=== PATIENT | female | born 1990 | race American Indian/Alaskan Native ===

== ENCOUNTER 2018-03-14 15:38 | Emergency (ER) | payer MEDICAID, OTHER ==
[2018-03-14 16:48] VITALS: BP 106/70
[2018-03-14 18:28] LABS: Bilirubin,Urine NEG (Negative); Blood,Urine LG (Negative); Mucus,Urine 1+ /HPF; Urobilinogen,Urine < 2.0 mg/dL (<2.0)
[2018-03-14 18:45] LABS: Color,Urine Yellow (Yellow); HCG Qualitative,Urine Negative (Negative)
== END 2018-03-14 23:40 | disposition left against medical advice (07) ==
LOC: ED 15:38
DX: Z53.21 Procedure and treatment not carried out due to patient leaving prior to being seen by health care provider (principal)
CPT/HCPCS: 81001; 81025

== ENCOUNTER 2020-06-06 14:18 | Emergency (ER) | payer OTHER ==
[2020-06-06] MEDS ORDERED: ACETAMINOPHEN 325 MG TAB PO ONE (14:44)
--- NOTE | 2020-06-06 14:51 | Emergency Department Report ---
HPI - General Chief Complaint: Headache Time Seen by Provider: 06/06/20 14:33 - HPI HPI: This is a 30-year-old female who presents to the emergency department with a complaint of lower extremity swelling, right-sided headache and some facial swelling around her cheeks since yesterday. The patient took some Tylenol without much relief. She says that she gets some transient relief in her headache from laying down. She denies any vision change, slurred speech, numbness or paresthesias or any neurological deficits. She denies any chest pain, shortness of breath, fever. The patient gave via vaginal delivery on 06/01/2020 at [facility]. Her [employer] is a Dr. Lei. Otherwise no past medical history. ED Past Medical Hx - Past Medical History Previous Medical History?: Yes Hx Psychiatric Treatment: Yes Additional medical history: Psychiatric diagnoses see HPI, MISCARRIAGE 2016 - Surgical History Past Surgical History?: No - Social History Smoking Status: Never Smoker Substance Use Type: None - Medications Home Medications: Home Medications Medication Instructions Recorded Confirmed Last Taken Type LORazepam [Ativan] 0.5 mg PO Q6H PRN #7 tablet 06/16/14 Unknown Rx traZODone [Desyrel] 50 mg PO QHS #30 tab 06/16/14 Unknown Rx HYDROcodone/APAP 5-325 [[place] 1 - 2 each PO Q6HR PRN #14 tablet 06/29/16 Unknown Rx 5/325] Ibuprofen [Motrin 800 MG tab] 800 mg PO Q8HR PRN #20 tablet 06/29/16 Unknown Rx Methylergonovine [Methergine] 0.2 mg PO Q6H #4 tablet 06/29/16 Unknown Rx ED Review of Systems ROS: Stated complaint: ALL OVER BODY SWELLING Other details as noted in HPI Comment: All other systems reviewed and negative Constitutional: denies: chills, fever Eyes: denies: eye pain, vision change ENT: denies: ear pain, throat pain Respiratory: denies: cough, shortness of breath Cardiovascular: edema. denies: chest pain Gastrointestinal: denies: abdominal pain, vomiting Genitourinary: denies: dysuria, discharge Musculoskeletal: denies: back pain, arthralgia Skin: denies: rash, lesions Neurological: headache. denies: weakness, numbness, paresthesias Physical Exam - Physical Exam Vital Signs: Vital Signs 06/06/20 14:19 Temperature 99.3 F Pulse Rate 80 Respiratory 18 Rate Blood Pressure 134/79 O2 Sat by Pulse 98 Oximetry ED Course Vital Signs 06/06/20 14:19 Temperature 99.3 F Pulse Rate 80 Respiratory 18 Rate Blood Pressure 134/79 O2 Sat by Pulse 98 Oximetry - Reevaluation(s) Reevaluation #1: 06/06/20 18:02 Patient's brother is on the way to take care of the so that the patient can receive further analgesia and CT imaging of her head. ED Medical Decision Making - Lab Data Result diagrams: 06/06/20 15:08 06/06/20 15:08 Critical care attestation.: If time is entered above; I have spent that time in minutes in the direct care of this critically ill patient, excluding procedure time. ED Disposition Clinical Impression: edema, Swelling of lower extremity Headache Qualifiers: Headache type: unspecified Headache chronicity pattern: unspecified pattern Intractability: not intractable Qualified Code(s): R51 - Headache Disposition: DC-01 TO HOME OR SELFCARE Is pt being admited?: No Condition: Stable Instructions: Leg Edema (ED), Acute Headache (ED) Additional Instructions: Please follow-up with your [employer] in the next few days. I am also giving you a referral for a local title checker, Dr. Farias, to follow-up regarding your lower extremity swelling, your slightly elevated BNP level (the lab we discussed), and the possible need for an Echocardiogram (an ultrasound of your heart). Please return to the emergency department with any worsening of your symptoms, development of chest pain or shortness of breath, or with any acute distress. Referrals: MARY FARIAS MD [Staff Physician] - 2-3 Days ROC LEI MD [Primary Care Provider] - 2-3 Days Time of Disposition: 20:00
[2020-06-06 15:55] LABS: Alanine Aminotransferase 22 units/L (7-56); Albumin 3.4 g/dL (3.9-5); Blood Urea Nitrogen 7 mg/dL (7-17); Calcium 9.1 mg/dL (8.4-10.2); Hemolysis Index 0
[2020-06-06 16:00] LABS: BUN/Creatinine Ratio 14
[2020-06-06 16:10] LABS: Bilirubin,Urine NEG (Negative); Blood,Urine SM (Negative); Color,Urine Yellow (Yellow); Mucus,Urine FEW /HPF; Protein,Urine <15 mg/dL mg/dL (Negative); Urobilinogen,Urine < 2.0 mg/dL (<2.0)
--- NOTE | 2020-06-06 16:19 | Vascular Lab Report ---
DUPLEX DOPPLER LOWER EXTREMITY VEINS, BILATERAL INDICATION: b/l LE swelling. TECHNIQUE: Duplex doppler imaging was performed through the veins of both lower extremities using venous batool yfn and other maneuvers. COMPARISON: No relevant prior imaging study available. FINDINGS: Right Common femoral vein: Negative. Right Superficial femoral vein: Negative. Right Popliteal vein: Negative. Right Calf veins: Negative. Left Common femoral vein: Negative. Left Superficial femoral vein: Negative. Left Popliteal vein: Negative. Left Calf veins: Negative. Additional findings: None.. IMPRESSION: 1. No sonographic evidence for DVT in either lower extremity. Signer Name: Tyler Black MD Signed: 06/06/2020 4:15 PM Workstation Name: [id number]
[2020-06-06 16:58] LABS: Basophils % (Auto) 0.2 % (0.0-1.8); Eosinophils # (Auto) 0.1 K/mm3 (0.0-0.4); Eosinophils % (Auto) 1.6 % (0.0-4.3); Hematocrit 35.6 % (30.3-42.9); Hemoglobin 11.7 gm/dl (10.1-14.3); Lymphocytes # (Auto) 2.6 K/mm3 (1.2-5.4); Lymphocytes % (Auto) 29.1 % (13.4-35.0); Mean Corpuscular HGB Conc 33 % (30-34); Mean Corpuscular Volume 92 fl (79-97); Monocytes # (Auto) 0.5 K/mm3 (0.0-0.8); Monocytes % (Auto) 5.4 % (0.0-7.3); Platelet Count 343 K/mm3 (140-440); Red Blood Count 3.86 M/mm3 (3.65-5.03); Red Cell Distribution Width 15.2 % (13.2-15.2)
[2020-06-06 18:52] VITALS: BP 133/65
--- NOTE | 2020-06-06 20:17 | Cat Scan Report ---
CT head/brain wo con INDICATION / CLINICAL INFORMATION: 30 years Female; headache. TECHNIQUE: Routine CT head without contrast. All CT scans at this location are performed using CT dos e reduction for ALARA by means of automated exposure control. COMPARISON: None. FINDINGS: BRAIN / INTRACRANIAL CONTENTS: The brain demonstrate appropriate attenuation. The ventricular system is within normal limits in size and configuration. There is no CT evidence of acute intracranial hemo rrhage or significant mass effect. ORBITS: No significant abnormality of visualized orbits. SINUSES / MASTOIDS: No significant abnormality in the visualized paranasal sinuses or mastoid air kishan ls. CRANIOCERVICAL JUNCTION: No significant abnormality. ADDITIONAL FINDINGS: There is prominence of the visualized nasopharyngeal soft tissues which likely r eflects lymphoid hypertrophy. The mastoid air cells are pneumatized. IMPRESSION: 1. There is no CT evidence of acute intracranial process. Signer Name: Richar Beltran MD Signed: 06/06/2020 8:13 PM Workstation Name: [id number]
[2020-06-06] MEDS ORDERED: KETOROLAC 60 MG/2 ML INJ IM ONE (21:24)
== END 2020-06-06 21:40 | disposition home or self-care (01) ==
LOC: ED 14:18
DX: O12.05 Gestational edema, complicating the puerperium (principal); R51 Headache; M79.89 Other specified soft tissue disorders; Z79.899 Other long term (current) drug therapy
CPT/HCPCS: 36415; 70450; 80053; 81001; 83880; 84443; 85025; 93970; 96372; 99284; J1885